=== PATIENT | female | born 1980 | race Caucasian/White ===

== ENCOUNTER 2017-01-03 16:51 | Emergency (ER) | payer MEDICAID, OTHER ==
[~2017-01-03] VITALS: Ht 157.5 cm; Wt 83.9 kg
[2017-01-03 17:33] VITALS: BP 122/76
--- NOTE | 2017-01-03 18:07 | NUR ---
Pt taken to bed 8.
--- NOTE | 2017-01-03 18:08 | NUR ---
Patient being evaluated by PILAR Watkins at bedside.
--- NOTE | 2017-01-03 18:23 | NUR ---
36/F c/o anxiety x2 days. Pt also c/o vomiting x4 yesterday. Denies vomiting today. Pt is AOX4, emirati speaking. VSS. Pt states she is having conflict with son at home.
--- NOTE | 2017-01-03 18:27 | NUR ---
Patient taken to x-ray via w/c.
--- NOTE | 2017-01-03 18:30 | NUR ---
PILAR Watkins made aware of negative urine .
--- NOTE | 2017-01-03 18:35 | NUR ---
Pt returned from X-ray via w/c.
--- NOTE | 2017-01-03 19:17 | NUR ---
Pt report given to Saúl BANUELOS. Transfer of care at this time.
--- NOTE | 2017-01-03 19:50 | NUR ---
Patient discharged with v/s stable. Written and verbal after care instructions given and explained. Patient alert, oriented and verbalized understanding of instructions. Ambulatory with steady gait. All questions addressed prior to discharge. ID band removed. Patient advised to follow up with PMD. Rx of ATIVAN 0.5MG PO given. Patient educated on indication of medication including possible reaction and side effects. Opportunity to ask questions provided and answered.
[2017-01-03 19:54] VITALS: BP 118/69
== END 2017-01-03 19:50 | disposition home or self-care (01) ==
LOC: MED 16:51
DX: F41.9 Anxiety disorder, unspecified (principal)

== ENCOUNTER 2017-11-30 19:30 | Emergency (ER) | payer MEDICAID, OTHER ==
[~2017-11-30] VITALS: Ht 167.6 cm; Wt 85.8 kg
[2017-11-30 19:58] VITALS: BP 107/50
--- NOTE | 2017-11-30 21:17 | NUR ---
PATIENT AMBULATED TO ER BED 12.
--- NOTE | 2017-11-30 21:20 | NUR ---
PATIENT IS A 37 Y/O FEMALE WHO PRESENTS TO THE ED C/O HEADACHE. PT STATES THAT SHE FEELS HEADACHE AND DIZZINESS. PT REPORTS 10/10 ACHING HEADACHE PAIN THAT DOES NOT RADIATE. PT DENIES CP, SOB, REPORTS NAUSEA DENIES VOMITING/DIARRHEA. PT AAOX4, RR EVEN/UNLABORED. PT REPOSITIONED FOR COMFORT, BED IN LOWEST POSITION. ER MD DR. ALEXANDER NOTIFIED. WILL CONTINUE TO MONITOR.
[2017-11-30] MEDS ORDERED: PROCHLORPERAZINE 10 MG/2 ML VIAL IM ONE (22:05)
[2017-11-30] MEDS ORDERED: diphenhydrAMINE 50 MG/ML VIAL IM ONE (22:05)
--- NOTE | 2017-11-30 23:09 | NUR ---
PATIENT TAKEN TO CT VIA WHEELCHAIR WITH TECH.
--- NOTE | 2017-11-30 23:20 | NUR ---
PATIENT RETURN FROM CT.
[2017-12-01 00:53] VITALS: BP 119/71
--- NOTE | 2017-12-01 00:53 | NUR ---
Patient discharged with v/s stable. Written and verbal after care instructions given and explained. Patient alert, oriented and verbalized understanding of instructions. Ambulatory with steady gait. All questions addressed prior to discharge. ID band removed. Patient advised to follow up with PMD. Rx of BENADRYL ALLERGY 25MG AND COMPAZINE 10MG given. Patient educated on indication of medication including possible reaction and side effects. Opportunity to ask questions provided and answered.
== END 2017-12-01 00:53 | disposition home or self-care (01) ==
LOC: MED 19:30
DX: R51 Headache (principal); I10 Essential (primary) hypertension
CPT/HCPCS: 70450; 81025; 96372; 99284; J0780; J1200

== ENCOUNTER 2019-07-18 19:02 | Emergency (ER) | payer MEDICAID, OTHER ==
[2019-07-18] MEDS ORDERED: KETOROLAC 60 MG/2 ML VIAL IM ONE (21:56)
== END 2019-07-18 22:30 | disposition home or self-care (01) ==
LOC: MED 19:02
DX: R07.9 Chest pain, unspecified (principal); I10 Essential (primary) hypertension; Z98.41 Cataract extraction status, right eye
CPT/HCPCS: 99282; J1885

== ENCOUNTER 2024-02-23 19:18 | Emergency (ER) | payer MEDICAID, OTHER ==
[~2024-02-23] VITALS: Ht 154.9 cm; Wt 81.6 kg
[2024-02-23 20:14] VITALS: BP 110/45; PULSE 69; RESP 16; TEMP 98.7; O2SAT 97
[2024-02-23 20:36] LABS: APPEARANCE,URINE CLEAR (CLEAR); BILIRUBIN,URINE NEGATIVE (NEGATIVE); BLOOD, URINE TRACE-L (NEGATIVE); COLOR,URINE YELLOW (YELLOW); LEUKOCYTE ESTERASE ,URINE TRACE (NEGATIVE); NITRITE, URINE NEGATIVE (NEGATIVE); PROTEIN,URINE NEGATIVE (NEGATIVE); UGLUCOSE NEGATIVE (NEGATIVE)
[2024-02-23 20:48] LABS: BACTERIA,URINE 10-30 (MOD) /HPF (None Seen); SQUAMOUS EPITHELIAL CELL,UR 0-3 (FEW) /LPF (0-3 (FEW))
[2024-02-23] MEDS ORDERED: CEPH-588 PO (21:27)
[2024-02-23] MEDS ORDERED: PHEN-1877 PO (21:27)
== END 2024-02-23 21:31 | disposition home or self-care (01) ==
LOC: MED 19:18
DX: N39.0 Urinary tract infection, site not specified (principal); I10 Essential (primary) hypertension; Z90.710 Acquired absence of both cervix and uterus; Z85.42 Personal history of malignant neoplasm of other parts of uterus; Z79.899 Other long term (current) drug therapy; Z79.2 Long term (current) use of antibiotics
CPT/HCPCS: 81001; 81025; 87086; 99283